=== PATIENT | male | born 1945 | race Hispanic/Latino ===

== ENCOUNTER 2018-08-11 10:10 | Emergency (ER) | payer MEDICARE, OTHER ==
[2018-08-11] MEDS ORDERED: PREDNISONE 20 MG TABLET ONE (10:34)
[2018-08-11] MEDS ORDERED: CYCLOBENZAPRINE HCL 10 MG TABLET ONE (10:34)
[2018-08-11 10:58] LABS: APPEARANCE,URINE Clear (CLEAR); BILIRUBIN,URINE Negative (NEGATIVE); COLOR,URINE Yellow (YELLOW); GLUCOSE, URINE (UA) Negative (NEGATIVE); KETONES,URINE Trace mg/dL (NEGATIVE); LEUKOCYTE ESTERASE ,URINE Negative (NEGATIVE); NITRATE,URINE Negative (NEGATIVE); OCCULT BLOOD,URINE Nonhemolyzed Trace (NEGATIVE); PROTEIN,URINE Negative (NEGATIVE)
[2018-08-11 11:20] LABS: BACTERIA,URINE Rare /HPF (None Seen); RBC,URINE 0-1 /HPF (0-1); SQUAMOUS EPITHELIAL CELL,UR Rare /HPF (0-2); WBC,URINE 0-1 /HPF (0-1)
[2018-08-11] MEDS ORDERED: ACETAMINOPHEN 325 MG TAB ONE (11:39)
[2018-08-11] MEDS ORDERED: KETOROLAC TROMETHAMINE 30MG/ML ONE (11:43)
== END 2018-08-11 12:15 | disposition home or self-care (01) ==
LOC: EDH 10:10
DX: M54.42 Lumbago with sciatica, left side (principal); G89.29 Other chronic pain; I10 Essential (primary) hypertension; E78.5 Hyperlipidemia, unspecified
CPT/HCPCS: 74176; 81001; 96372; 99284; J1885